=== PATIENT | male | born 1965 | race Caucasian/White ===

== ENCOUNTER 2024-07-08 03:48 | Observation (INO) ==
[2024-07-08] MEDS ORDERED: CARAFATE PO STA (04:04)
--- NOTE | 2024-07-08 04:06 | ED.PDOC ---
General ED Provider: Dr. ITALIA GARCIA MD Chief Complaint: Abdominal Pain Stated Complaint: Patient is a 58-year-old male that reported to the emergency department with epigastric pain. Patient stated that the pain started approximately 30 minutes prior to coming to the emergency department. Patient stated that he was asleep when the pain started. Patient's is not stated that he had to have a bowel movement yesterday evening before going to bed and it was normal. Patient stated that he has had no hematochezia, hemoptysis or melanic stools. Patient stated that he is scheduled for a colonoscopy July 31, 2024. Patient stated that he was seen for similar symptoms back in January. Looking back at his records it appears patient had a CT of the abdomen and pelvis which showed no acute findings. Since that time patient has been noncompliant with going to see his primary care physician. Patient reported a past medical history of GERD, hypertension, and vitamin D deficiency. Patient stated that he has not taken anything for his abdominal pain. Patient states that moving makes his pain worse. Patient rates his pain as an 8 out of 10 currently and states that this aching and dull in nature. Patient did report nausea with vomiting prior to arrival. Patient denies any diarrhea. Patient denies any other acute symptoms at the current time. Patient's vital signs are stable. Patient's GCS is 15. Time Seen by Provider: 07/08/24 03:50 Mode of Arrival: Walk-In Information Source: Patient Exam Limitations: No limitations Primary Care Provider: LETICIA MEYERS APRN Nursing and Triage Documentation Reviewed and Agree: Yes What is Opioid Naive?: *Opioid Naive implies the patient is not already taking opioids or not chronically receiving opioids on a daily basis. *PRN dosing is not "usually" associated with tolerance. *Patients are at higher risk of over-sedation and aspiration. What is Opioid Tolerant?: *Opioid Tolerance implies less than the expected response to an opioid. *Acquired tolerance is defined by the patient taking 60mg of oral morphine daily (or equianalgesic dose of another opioid) for 1 week or more. *Often associated with chronic pain. *May take more than usual dose to achieve desired pain control. Review of Systems Review Of Systems Constitutional: Reports No symptoms Eyes: Reports No symptoms Ears, Nose, Mouth, Throat: Reports No symptoms Respiratory: Reports No symptoms Cardiac: Reports No symptoms GI: Reports Abdominal pain, Nausea and Vomiting : Reports No symptoms Musculoskeletal: Reports No symptoms Skin: Reports No symptoms Neurological: Reports No symptoms Endocrine: Reports No symptoms Hematologic/Lymphatic: Reports No symptoms All Other Systems: Reviewed and Negative [facility] Family History FATHER Cancer PATERNAL GRANDFATHER Cancer PATERNAL GRANDFATHER Cancer UNCLE Cancer Social History Smoking and tobacco status: Never smoker Alcohol intake: never Substance use type: does not use Delisa/jew: NONE Household members: other Other Household Members: does not have anywhere to go Has 3 people he lives with, does not know them Housing: house Marital status: X LEGALLY Number of children: 4 Number of grandchildren: 7 Highest education level completed: 8th grade Financial difficulty paying for basics: very hard Current occupational status: unemployed and disabled Do you think of yourself as: straight/heterosexual Current gender identity: male Seatbelt use: always Helmet use: Yes 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 Water heater temperature set < 120 degrees: Yes Working smoke detector in home: Yes Fire extinguisher in home: Yes Carbon monoxide detector in home: Yes Firearms in home: Yes Surgical History History of surgery on lower extremity Z98.890 - Other specified postprocedural states (ICD-10) Physical Exam Physical Exam Appearance: Reports Well-appearing and Well-nourished Ill-appearing: None Pain Distress: Moderate Eyes: Reports ODALYS, EOMI and Conjunctiva clear ENT: Reports Nose normal and Oropharynx normal Neck: Supple Respiratory: Reports Airway patent, Breath sounds clear, Breath sounds equal and Respirations nonlabored Cardiovascular: Reports RRR, Pulses normal, No rub and No murmur GI/: Reports Soft, No masses, Bowel sounds normal and Tender (Patient had tenderness to palpation over the epigastrium. Hernandez sign negative. Rebound tenderness negative. No guarding noted. No masses or bruising noted.) Musculoskeletal: Reports Normal strength, ROM intact and No edema Skin: Reports Warm, Dry and Normal color Neurological: Reports Sensation intact, Motor intact, Alert and Oriented Psychiatric: Reports Affect appropriate and Mood appropriate Course Course 07/08/24 04:11 07/08/24 04:11 Orders, Labs, Meds: Lab Review 07/08/24 07/08/24 04:11 05:08 WBC 9.68 RBC 5.49 Hgb 15.0 Hct 45.1 MCV 82.1 MCH 27.3 MCHC 33.3 RDW Coeff of [place] 13.2 Plt Count 242 Immature Gran % (Auto) 0.3 Neut % (Auto) 76.5 H Lymph % (Auto) 13.0 [place] % (Auto) 8.0 Eos % (Auto) 1.9 Baso % (Auto) 0.3 Neut # (Auto) 7.4 H Lymph # (Auto) 1.3 [place] # (Auto) 0.8 Eos # (Auto) 0.2 Baso # (Auto) 0.0 Immature Gran # (Auto) 0.0 Sodium 137.9 Potassium 3.79 Chloride 104.8 Carbon Dioxide 28.2 Anion Gap 8.69 BUN 8.8 L Creatinine 0.93 Estimated GFR (MDRD) 83.00 BUN/Creatinine Ratio 9.46 Glucose 136.3 H Calcium 8.56 Total Bilirubin 0.64 AST 38.1 ALT 20.2 Alkaline Phosphatase 77.9 Troponin I < 0.012 Total Protein 6.17 L Albumin 3.64 Globulin 2.53 Albumin/Globulin Ratio 1.43 Lipase 32.3 Urine Color Yellow Urine Clarity Clear Urine pH 7.5 Ur Specific [place] 1.020 Urine Protein Negative Urine Glucose (UA) Negative Urine Ketones Negative Urine Blood Negative Urine Nitrite Negative Urine Bilirubin Negative Urine Urobilinogen 0.2 Ur Leukocyte Esterase Negative Orders Category Date Time Status EKG-(ED ONLY) Stat CARDIO 07/08/24 04:01 Completed NPO REMINDER: IMAGING ONCE CARE 07/08/24 04:06 Completed IV [ED IV/MEDIPORT/POWERPORT] .ONCE EMERGENCY 07/08/24 04:02 Active CBC W/ AUTO DIFF Stat LAB 07/08/24 04:11 Completed COMPREHENSIVE METABOLIC PANEL Stat LAB 07/08/24 04:11 Completed LIPASE Stat LAB 07/08/24 04:11 Completed TROPONIN I Stat LAB 07/08/24 04:11 Completed URINALYSIS C & S IF INDICATED Stat LAB 07/08/24 05:08 Completed 0.9 % Sodium Chloride [Saline Flush] Meds 07/08/24 04:02 Active 1 syr IVF PRN PRN Iohexol [Omnipaque 350 mg/ml 100Ml] Meds 07/08/24 04:43 Discontinued 100 ml IVP ONCE ONE Morphine Sulfate [Morphine 2 mg/ml Syringe] Meds 07/08/24 04:02 Discontinued 2 mg IVP ONCE ONE Morphine Sulfate [Morphine 2 mg/ml Syringe] Meds 07/08/24 05:56 Discontinued 2 mg IVP ONCE ONE Ondansetron HCl/Pf [Zofran Sdv] Meds 07/08/24 04:09 Discontinued 4 mg IVP ONCE STA Pantoprazole Sodium [Protonix] Meds 07/08/24 04:02 Discontinued 40 mg IVP ONCE ONE Promethazine HCl [Phenergan 25 mg/ml Vial] Meds 07/08/24 05:23 Discontinued 25 mg .ROUTE .STK-MED ONE Promethazine HCl [Phenergan 25 mg/ml Vial] 25 mg Meds 07/08/24 05:18 Discontinued 0.9 % Sodium Chloride [Sodium Chloride] 50 ml IV ONCE Sodium Chloride 0.9% [Sodium Chloride] 1,000 ml Meds 07/08/24 04:02 Discontinued IV BOLUS Sucralfate Susp [Carafate] Meds 07/08/24 04:12 Discontinued 1 gm PO ONCE STA CT ABDOMEN/PELVIS W CONTRAST Stat RADS 07/08/24 04:06 Completed Medications Generic Name Dose Route Start Last Admin Trade Name Freq PRN Reason Stop Dose Admin Sodium Chloride 1 syr 07/08/24 04:02 0.9% Sodium Chloride 10 Ml Disp.Syrin IVF PRN PRN To flush IV Discontinued Medications Generic Name Dose Route Start Last Admin Trade Name Freq PRN Reason Stop Dose Admin Sodium Chloride 1,000 mls @ 1,000 mls/hr 07/08/24 04:02 07/08/24 05:44 Sodium Chloride IV 07/08/24 05:01 Infused BOLUS ONE Infusion Promethazine HCl 25 mg/ Sodium 51 mls @ 100 mls/hr 07/08/24 05:18 07/08/24 05:26 Chloride IV 07/08/24 05:48 100 mls/hr ONCE ONE Administration Iohexol 100 ml 07/08/24 04:43 07/08/24 05:13 Iohexol 350 Mg/Ml 100ml IVP 07/08/24 04:44 Not Given ONCE ONE Morphine Sulfate 2 mg 07/08/24 04:02 07/08/24 04:12 Morphine Sulfate 2 Mg/Ml Syringe IVP 07/08/24 04:03 2 mg ONCE ONE Administration Morphine Sulfate 2 mg 07/08/24 05:56 07/08/24 06:03 Morphine Sulfate 2 Mg/Ml Syringe IVP 07/08/24 05:57 2 mg ONCE ONE Administration Ondansetron HCl 4 mg 07/08/24 04:09 07/08/24 04:16 Ondansetron Hcl/Pf 4 Mg/2 Ml Sdv IVP 07/08/24 04:10 4 mg ONCE STA Administration Pantoprazole Sodium 40 mg 07/08/24 04:02 07/08/24 04:12 Pantoprazole Sodium 40 Mg Vial IVP 07/08/24 04:03 40 mg ONCE ONE Administration Sucralfate 1 gm 07/08/24 04:12 07/08/24 04:16 Sucralfate Susp 1 Gm/10 Ml Cup PO 07/08/24 04:13 1 gm ONCE STA Administration Vital Signs: Temp Pulse Resp BP Pulse Ox 07/08/24 03:49 97.2 F L 59 L 20 149/77 H 98 Discharge Plan Discharge Patient Disposition: PLACED OBSERVATION Discharge Problem: Acute epigastric pain, Hyperglycemia, Intractable nausea and vomiting, Left nephrolithiasis Cholelithiasis Qualifiers: Cholelithiasis location: gallbladder Cholecystitis presence: without cholecystitis Biliary obstruction: without biliary obstruction Qualified Code(s): K80.20 - Calculus of gallbladder without cholecystitis without obstruction Did you review [place] [employer] for ALL controlled substances?: Not Applicable ED Provider: ITALIA GARCIA Condition: Stable Physician Progress Note: Patient is a 58-year-old male that reported to the emergency department with epigastric pain. Patient stated that the pain started approximately 30 minutes prior to coming to the emergency department. Patient stated that he was asleep when the pain started. Patient's is not stated that he had to have a bowel movement yesterday evening before going to bed and it was normal. Patient stated that he has had no hematochezia, hemoptysis or melanic stools. Patient stated that he is scheduled for a colonoscopy July 31, 2024. Patient stated that he was seen for similar symptoms back in January. Looking back at his records it appears patient had a CT of the abdomen and pelvis which showed no acute findings. Since that time patient has been noncompliant with going to see his primary care physician. Patient reported a past medical history of GERD, hypertension, and vitamin D deficiency. Patient stated that he has not taken anything for his abdominal pain. Patient states that moving makes his pain worse. Patient rates his pain as an 8 out of 10 currently and states that this aching and dull in nature. Patient did report nausea with vomiting prior to arrival. Patient denies any diarrhea. Patient denies any other acute symptoms at the current time. Patient's vital signs are stable. Patient's GCS is 15. Patient denies any EtOH, tobacco, or drug use. Patient denied any recent use or history of long-term NSAID use as well. -Will order CT of the abdomen and pelvis with contrast to rule out pancreatitis versus acute cholecystitis versus appendicitis versus diverticulitis or any other acute pathology. -Patient has acute epigastric pain 8 out of 10. Will treat with IV morphine 2 mg. Will also give a dose of p.o. Carafate 10 mg. Will give IV Protonix 40 mg. -Will order baseline labs. -Atypical signs of ACS or GA are low on my differential however will order an EKG and troponin to rule out cardiac as a cause for patient's epigastric pain. -Will give the patient IV normal saline 1 L bolus for dehydration due to nausea and vomiting. Will treat patient's nausea and vomiting with IV ondansetron 4 mg. -EKG shows sinus bradycardia with a rate of 52 bpm. Left axis deviation noted. Right bundle branch block noted. No acute ST elevations noted. This was interpreted by the ER physician. -CBC shows slight increase in neutrophils within normal white blood cell count. -Patient's glucose slightly elevated 136 mg/dL otherwise CMP unremarkable. -Patient has started to vomit again. Will give the patient IV promethazine 25 mg. -Troponin is negative. -Patient is continue to have pain in the epigastrium. Will give another IV morphine 2 mg for 8 of 10 pain. -CT of the abdomen pelvis shows 1 cm left renal stone. No stone in the ureters or hydronephrosis. Cholelithiasis without acute cholecystitis. -Due to patient's continued intractable nausea and vomiting and continued pain we will attempt to transfer patient to a facility with a higher acuity of care that has a possible need for general surgery and urology. -([id number]) Spoke to hospitalist at [facility], ANABELA Sandhu, who is accepted the patient for intractable nausea and vomiting. Patient's vital signs are stable at time of admission.
[2024-07-08] MEDS: PROTONIX IVP ONE (04:12)
[2024-07-08] MEDS: MORPHINE 2 MG/ML SYRINGE IVP ONE ×2 (04:12→06:03)
[2024-07-08] MEDS: SODIUM CHLORIDE 1,000 ML IV ONE (04:13)
[2024-07-08 04:16] LABS: BASOPHILS % (AUTO) 0.3 % (0.0-3.0); EOSINOPHILS # (AUTO) 0.2 K/ul (0.0-0.7); EOSINOPHILS % (AUTO) 1.9 % (0.0-7.0); HEMATOCRIT 45.1 % (42.0-52.0); IMMATURE GRANULOCYTE % (AUTO) 0.3 % (0.0-5.0); LYMPHOCYTES # (AUTO) 1.3 K/uL (0.60-3.4); MEAN CORPUSCULAR HEMOGLOBIN 27.3 pg (27.0-31.0); MEAN CORPUSCULAR HGB CONC 33.3 (31.8-35.4); MEAN CORPUSCULAR VOLUME 82.1 fl (80.0-94.0); MONOCYTES # (AUTO) 0.8 K/uL (0.4-2.0); NEUTROPHILS # (AUTO) 7.4 K/ul (2.0-6.9); NEUTROPHILS % (AUTO) 76.5 % (42.2-75.2); PLATELET COUNT 242 10^3/uL (140-440); RDW COEFFICIENT OF VARIATION 13.2 % (11.6-14.8); RED BLOOD COUNT 5.49 10^6/ul (4.70-6.10); WHITE BLOOD COUNT 9.68 K/ul (4.2-10.2)
[2024-07-08] MEDS: ZOFRAN SDV IVP STA (04:16)
[2024-07-08] MEDS: CARAFATE PO STA (04:16)
[2024-07-08 04:30] LABS: ALANINE AMINOTRANSFERASE 20.2 U/L (0-50); ALBUMIN 3.64 g/dL (3.5-5.0); ALKALINE PHOSPHATASE 77.9 U/L (38-126); ASPARTATE AMINO TRANSFERASE 38.1 U/L (17-59); BILIRUBIN,TOTAL 0.64 mg/dL (0.2-1.3); BLOOD UREA NITROGEN 8.8 mg/dL (9-20); CALCIUM 8.56 mg/dL (8.4-10.2); CARBON DIOXIDE 28.2 mmol/L (22-30.0); CHLORIDE 104.8 mmol/L (98-107); CREATININE 0.93 mg/dL (0.60-1.10); GLUCOSE 136.3 mg/dL (74-106); LIPASE 32.3 U/L (23-300); POTASSIUM 3.79 mmol/L (3.5-5.1); SODIUM 137.9 mmol/L (134.5-145); TOTAL PROTEIN 6.17 g/dL (6.3-8.2)
[2024-07-08 04:41] LABS: TROPONIN I < 0.012 ng/ml (0.0000-0.120)
[2024-07-08] MEDS: OMNIPAQUE 350 MG/ML 100ML IVP ONE ×2 (04:50→05:13)
[2024-07-08 05:23] LABS: BILIRUBIN,URINE Negative (NEGATIVE); CLARITY,URINE Clear (CLEAR); COLOR,URINE Yellow (YELLOW); GLUCOSE, URINE (UA) Negative (NEGATIVE); KETONES,URINE Negative (NEGATIVE); LEUKOCYTE ESTERASE ,URINE Negative (NEGATIVE); NITRITE,URINE Negative (NEGATIVE); PH,URINE 7.5 (5-9); PROTEIN,URINE Negative (NEGATIVE); URINE, BLOOD Negative (NEGATIVE); UROBILINOGEN,URINE 0.2 (0.2)
[2024-07-08] MEDS: PHENERGAN 25 MG/ML VIAL 25 MG in SODIUM CHLORIDE 50 ML IV ONE (05:26)
--- NOTE | 2024-07-08 05:27 | CT ---
EXAM: CT OF THE ABDOMEN AND PELVIS WITH CONTRAST TECHNIQUE: CT of the abdomen and pelvis was performed with contrast. Multiplanar reformats were perf ormed. HISTORY: Epigastric pain and upper abdominal pain. COMPARISON: CT abdomen pelvis 01/28/2024. FINDINGS: Imaged lower thorax: Calcified granulomas at the lung bases. Dependent atelectasis in the lower lobe s. Liver: Unremarkable. Gallbladder/Bile Ducts: No biliary dilation. Cholelithiasis without acute cholecystitis. Spleen: Unremarkable. Pancreas: Unremarkable. Adrenals: Unremarkable. Kidneys/Ureters: 1 cm left renal stone. No stone in the ureters. No hydronephrosis. Bowel/mesentery/peritoneum: Small duodenal diverticulum. No bowel obstruction. Normal appendix. No a scites or free air. Retroperitoneum/vessels: No aortic aneurysm. Mild scattered atherosclerotic plaques. Pelvis: Unremarkable. Bones/body wall: Multilevel degenerative spondylosis. IMPRESSION: 1 cm left renal stone. No stone in the ureters or hydronephrosis. Cholelithiasis without acute cholecystitis. All CT scans are performed using dose optimization techniques as appropriate to the performed exam an d include at least one of the following: Automated exposure control, adjustment of the mA and/or kV according t o size, and the use of iterative reconstruction technique.
[2024-07-08] MEDS: PHENERGAN 25 MG/ML VIAL ONE (07:22)
[2024-07-08 07:33] LABS: SARS COV-2 RNA RAPID NAAT NEGATIVE (NEGATIVE)
[2024-07-08] MEDS ORDERED: ZOFRAN SDV IVP PRN (08:48)
[2024-07-08] MEDS ORDERED: MORPHINE 2 MG/ML SYRINGE IVP PRN (08:48)
[2024-07-08 09:37] VITALS: BMI 36.6
[2024-07-08] MEDS: PEPCID IVP SCH (11:55)
[2024-07-08] MEDS: PROTONIX IVP SCH (11:55)
--- NOTE | 2024-07-08 13:49 | PCM ---
Date of Service Date Seen by Provider: 07/08/24 Time Seen by Provider: 09:00 Admit Day/Time Admission Date: 07/08/24 Admission Time: 08:48 Reason for Admission Chief Complaint: INTRACTABLE NAUSEA AND VOMITING Hospital Provider Hospital Provider[place]QUE [place]OTO [place] [facility] [place] Primary Care Physician: LETICIA MEYERS APRN History of Present Illness History of Present Illness: Patient is a 58 year old male with pmhx of hyperlipidemia, hypertension, left foot drop, GERD, who presented with nausea and vomiting. Patient states that he woke up in the middle of the night with it. He does complain of some epigastric pain that is on and off. He states he had an episode of this a few months ago as well. Denies any diarrhea, states he may actually just be constipated. In the ER he had a CT scan showing cholelithiasis without cholecystitis otherwise unremarkable. No common bile duct dilation noted. Infection markers normal. However patient continued to have emesis despite multiple antiemetics. Patient admitted to [facility] for intractable nausea and vomiting. Patient states he did not eat anything fatty or unhealthy yesterday. He states that he just ate Ambriz's and had a fish sandwich and soda. But he felt fine afterwards. He is unaware of any history of gallbladder issues. Denies fever. Case Discussed With Case Discussed With: Patient's case was discussed with the ER Physicians, Dr. Esparza. [facility] Surgical History History of surgery on lower extremity Z98.890 - Other specified postprocedural states (ICD-10) Family History FATHER Cancer PATERNAL GRANDFATHER Cancer PATERNAL GRANDFATHER Cancer UNCLE Cancer Social History Smoking and tobacco status: Never smoker Alcohol intake: never Substance use type: does not use Delisa/denominational: NONE Household members: other Other Household Members: does not have anywhere to go Has 3 people he lives with, does not know them Housing: house Marital status: X LEGALLY Number of children: 4 Number of grandchildren: 7 Highest education level completed: 8th grade Financial difficulty paying for basics: very hard Current occupational status: unemployed and disabled Do you think of yourself as: straight/heterosexual Current gender identity: male Seatbelt use: always Helmet use: Yes 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 Water heater temperature set < 120 degrees: Yes Working smoke detector in home: Yes Fire extinguisher in home: Yes Carbon monoxide detector in home: Yes Firearms in home: Yes Allergies Allergies Allergy/AdvReac Type Severity Reaction Status Date / Time No Known Allergies Allergy Verified 07/08/24 03:59 Current Medications Home Medications afo brace #1 ea 10/15/22 [Rx Confirmed 07/08/24 Last Taken Unknown] lisinopril 10 mg tablet 10 mg PO QDAY 30 days #30 tabs 08/07/23 [Rx Confirmed 07/08/24 Last Taken Unknown] naproxen 500 mg tablet 500 mg PO BID PRN pain #60 tabs 09/07/23 [Rx Confirmed 07/08/24 Last Taken Unknown] tizanidine 4 mg tablet (Zanaflex) 4 mg PO QHS PRN muscle spasticity #20 tabs 09/07/23 [Rx Confirmed 07/08/24 Last Taken Unknown] rosuvastatin 20 mg tablet 20 mg PO QDAY 90 days #90 tabs 09/09/23 [Rx Confirmed 07/08/24 Last Taken Unknown] mupirocin 2 % topical ointment 1 applic topical BID #22 grams 03/09/24 [Rx Confirmed 07/08/24 Last Taken Unknown] ketoconazole 2 % topical cream 1 applic topical BID #30 grams 05/24/24 [Rx Confirmed 07/08/24 Last Taken Unknown] Home Famotidine (Famotidine Inj 20 Mg/2 Ml Vial) 20 mg IVP Q12HR [facility] Last Admin: 07/08/24 11:55 Dose: 20 mg Morphine Sulfate (Morphine Sulfate 2 Mg/Ml Syringe) 2 mg IVP Q6H PRN PRN Reason: MODERATE PAIN Ondansetron HCl (Ondansetron Hcl/Pf 4 Mg/2 Ml Sdv) 4 mg IVP Q6H PRN PRN Reason: Nausea / Vomiting Pantoprazole Sodium (Pantoprazole Sodium 40 Mg Vial) 40 mg IVP QDAC2 [facility] Last Admin: 07/08/24 11:55 Dose: 40 mg Sodium Chloride (0.9% Sodium Chloride 10 Ml Disp.Syrin) 1 syr IVF PRN PRN PRN Reason: To flush IV Discontinued Medications Sodium Chloride (Sodium Chloride) 1,000 mls @ 1,000 mls/hr IV BOLUS ONE Stop: 07/08/24 05:01 Last Infusion: 07/08/24 05:44 Dose: Infused Promethazine HCl 25 mg/ Sodium (Chloride) 51 mls @ 100 mls/hr IV ONCE ONE Stop: 07/08/24 05:48 Last Admin: 07/08/24 05:26 Dose: 100 mls/hr Iohexol (Iohexol 350 Mg/Ml 100ml) 100 ml IVP ONCE ONE Stop: 07/08/24 04:44 Last Admin: 07/08/24 05:13 Dose: Not Given Iohexol (Iohexol 350 Mg/Ml 100ml) 100 ml IVP ONCE ONE Stop: 07/08/24 08:23 Last Admin: 07/08/24 04:50 Dose: 100 ml Morphine Sulfate (Morphine Sulfate 2 Mg/Ml Syringe) 2 mg IVP ONCE ONE Stop: 07/08/24 04:03 Last Admin: 07/08/24 04:12 Dose: 2 mg Morphine Sulfate (Morphine Sulfate 2 Mg/Ml Syringe) 2 mg IVP ONCE ONE Stop: 07/08/24 05:57 Last Admin: 07/08/24 06:03 Dose: 2 mg Ondansetron HCl (Ondansetron Hcl/Pf 4 Mg/2 Ml Sdv) 4 mg IVP ONCE STA Stop: 07/08/24 04:10 Last Admin: 07/08/24 04:16 Dose: 4 mg Pantoprazole Sodium (Pantoprazole Sodium 40 Mg Vial) 40 mg IVP ONCE ONE Stop: 07/08/24 04:03 Last Admin: 07/08/24 04:12 Dose: 40 mg Sucralfate (Sucralfate Susp 1 Gm/10 Ml Cup) 1 gm PO ONCE STA Stop: 07/08/24 04:13 Last Admin: 07/08/24 04:16 Dose: 1 gm Opioid Naive vs. Tolerant Does Patient Take Opioids?: No Is Patient Opioid Naive?: Yes What is Opioid Naive?: *Opioid Naive implies the patient is not already taking opioids or not chronically receiving opioids on a daily basis. *PRN dosing is not "usually" associated with tolerance. *Patients are at higher risk of over-sedation and aspiration. Is Patient Opioid Tolerant?: No What is Opioid Tolerant?: *Opioid Tolerance implies less than the expected response to an opioid. *Acquired tolerance is defined by the patient taking 60mg of oral morphine daily (or equianalgesic dose of another opioid) for 1 week or more. *Often associated with chronic pain. *May take more than usual dose to achieve desired pain control. Review of Systems Constitutional: Denies Fever Head: Reports Normocephalic and Atraumatic Cardiovascular: Denies Chest pain or Chest Pressure Respiratory: Denies Cough or Shortness of air Gastrointestinal: Reports Nausea, Vomiting and Abdominal pain; Denies Diarrhea or Melena Genitourinary: Denies Dysuria or Hematuria Dermatologic: Denies Rashes Physical examination Most Recent Vital Signs: Most Recent Vital Signs Temperature 97 F L 07/08/24 09:02 Temperature Source Oral 07/08/24 09:02 Temperature Source Infrared 07/08/24 03:49 Pulse Rate 57 L 07/08/24 09:02 Respiratory Rate 16 07/08/24 09:02 Blood Pressure 148/86 H 07/08/24 07:54 Blood Pressure Left Arm 159/99 07/08/24 09:02 Blood Pressure Position Supine 07/08/24 09:02 O2 Sat by Pulse Oximetry 97 07/08/24 09:02 Oxygen Delivery Method Room Air 07/08/24 13:29 Height 5 ft 6 in 07/08/24 09:02 Weight 103 kg 07/08/24 09:02 Appearance: Positive No Apparent Distress, Alert and Oriented x3 and Other (Patient lies on his right side with his eyes closed during interview/exam) Skin: Negative Rashes HEENT: Positive Normocephalic and Atraumatic Neck: Positive Supple and Midline Trachea Chest/Lungs: Positive Clear to Auscultation Bilaterally; Negative Rales, Rhonci or Wheezes Heart: Positive RRR GI/: Positive Soft, Bowel Sounds Normal and Other (+Pt refuses to roll off his right side for me to evaluate his RUQ, states it will make him puke and he is not moving. ) Neurological: Positive Alert and Oriented Psychiatric: Positive Oriented x4, Appropriate Mood and Appropriate Affect Labs This Visit Labs This Visit: Labs This Visit 07/08/24 07/08/24 07/08/24 04:11 05:08 07:09 WBC 9.68 RBC 5.49 Hgb 15.0 Hct 45.1 MCV 82.1 MCH 27.3 MCHC 33.3 RDW Coeff of Meliton 13.2 Plt Count 242 Immature Gran % (Auto) 0.3 Neut % (Auto) 76.5 H Lymph % (Auto) 13.0 [place] % (Auto) 8.0 Eos % (Auto) 1.9 Baso % (Auto) 0.3 Neut # (Auto) 7.4 H Lymph # (Auto) 1.3 [place] # (Auto) 0.8 Eos # (Auto) 0.2 Baso # (Auto) 0.0 Immature Gran # (Auto) 0.0 Sodium 137.9 Potassium 3.79 Chloride 104.8 Carbon Dioxide 28.2 Anion Gap 8.69 BUN 8.8 L Creatinine 0.93 Estimated GFR (MDRD) 83.00 BUN/Creatinine Ratio 9.46 Glucose 136.3 H Calcium 8.56 Total Bilirubin 0.64 AST 38.1 ALT 20.2 Alkaline Phosphatase 77.9 Troponin I < 0.012 Total Protein 6.17 L Albumin 3.64 Globulin 2.53 Albumin/Globulin Ratio 1.43 Lipase 32.3 Urine Color Yellow Urine Clarity Clear Urine pH 7.5 Ur Specific [place] 1.020 Urine Protein Negative Urine Glucose (UA) Negative Urine Ketones Negative Urine Blood Negative Urine Nitrite Negative Urine Bilirubin Negative Urine Urobilinogen 0.2 Ur Leukocyte Esterase Negative SARS CoV-2 RNA Rapid GERSON Negative Imaging Imaging: EXAM: CT OF THE ABDOMEN AND PELVIS WITH CONTRAST TECHNIQUE: CT of the abdomen and pelvis was performed with contrast. Multiplanar reformats were performed. HISTORY: Epigastric pain and upper abdominal pain. COMPARISON: CT abdomen pelvis 01/28/2024. FINDINGS: Imaged lower thorax: Calcified granulomas at the lung bases. Dependent atelectasis in the lower lobes. Liver: Unremarkable. Gallbladder/Bile Ducts: No biliary dilation. Cholelithiasis without acute cholecystitis. Spleen: Unremarkable. Pancreas: Unremarkable. Adrenals: Unremarkable. Kidneys/Ureters: 1 cm left renal stone. No stone in the ureters. No hydronephrosis. Bowel/mesentery/peritoneum: Small duodenal diverticulum. No bowel obstruction. Normal appendix. No ascites or free air. Retroperitoneum/vessels: No aortic aneurysm. Mild scattered atherosclerotic plaques. Pelvis: Unremarkable. Bones/body wall: Multilevel degenerative spondylosis. IMPRESSION: 1 cm left renal stone. No stone in the ureters or hydronephrosis. Cholelithiasis without acute cholecystitis. EXAM: ULTRASOUND ABDOMINAL HISTORY: Acute abdominal pain. Right upper quadrant pain. TECHNIQUE: Sonography of the abdomen was performed. Images were obtained and stored in a permanent archive. Study is limited by the body habitus, patient's clinical condition and overlying bowel gas. COMPARISON: CT abdomen pelvis 07/08/2024 FINDINGS: Pancreas: Not visualized due to overlying bowel gas. Liver: Liver measures 14.5 cm. Normal echogenicity. No lesions. Main portal vein is patent and demonstrates appropriate directional flow. Biliary: No duct dilation. Not visualized. Gallbladder sludge. No surrounding inflammatory changes or associated wall thickening. Right Kidney: Not visualized due to overlying bowel gas. IVC: Not visualized.. Other: No ascites. IMPRESSION: - Limited study as above - Gallbladder sludge without associated wall thickening or surrounding soft tissue stranding. - Nonvisualization of the midline structures as above. Review Statement Review Statement: I have independently reviewed and interpreted the labs/EKGs/imaging that were ordered by the ER provider. I have reviewed all outside records that are available currently in our EMR including imaging/notes/labs from previous visits. Plan Plan: 1. Intractable n/v - zofran prn, protonix and pepcid ordered, NPO. CT showing cholelithiasis, US showing gallbladder sludge. No sign of cholecystitis or CBD dilation. May need outpatient f/u if symptoms continue. Lipase and liver enzymes normal. Progress diet this evening if symptoms improved. DVT Prophylaxis: Ambulation Time Spent: Greater than 80 minutes spent with patient, 50% of the time spent with this patient was devoted to counseling and coordination of care. [facility]annin minutes spent discussing advance care planning. Admit to: Obs Discussed Plan of Care with Dr. Pina Manuel. Medications Medication Orders: Medications Ordered Category Date Time Status 0.9 % Sodium Chloride [Saline Flush] Meds 07/08/24 04:02 Active 1 syr IVF PRN PRN Famotidine Inj [Pepcid] Meds 07/08/24 09:00 Active 20 mg IVP Q12HR Morphine Sulfate [Morphine 2 mg/ml Syringe] Meds 07/08/24 08:48 Active 2 mg IVP Q6H PRN Ondansetron HCl/Pf [Zofran Sdv] Meds 07/08/24 08:48 Active 4 mg IVP Q6H PRN Pantoprazole Sodium [Protonix] Meds 07/08/24 09:00 Active 40 mg IVP QDAC2
[2024-07-08 21:14] VITALS: RESP 18
[2024-07-09 05:14] VITALS: BP 145/92; TEMP 97.3
[2024-07-09 05:27] LABS: BASOPHILS % (AUTO) 0.2 % (0.0-3.0); EOSINOPHILS # (AUTO) 0.1 K/ul (0.0-0.7); EOSINOPHILS % (AUTO) 0.6 % (0.0-7.0); HEMATOCRIT 44.9 % (42.0-52.0); HEMOGLOBIN 15.1 g/dl (14.0-18.0); IMMATURE GRANULOCYTE % (AUTO) 0.3 % (0.0-5.0); LYMPHOCYTES # (AUTO) 1.2 K/uL (0.60-3.4); LYMPHOCYTES % (AUTO) 10.8 (10.0-50.0); MEAN CORPUSCULAR HGB CONC 33.6 (31.8-35.4); MEAN CORPUSCULAR VOLUME 83.1 fl (80.0-94.0); MONOCYTES # (AUTO) 1.1 K/uL (0.4-2.0); MONOCYTES % (AUTO) 9.5 (0-10); NEUTROPHILS % (AUTO) 78.6 % (42.2-75.2); PLATELET COUNT 237 10^3/uL (140-440); RDW COEFFICIENT OF VARIATION 13.2 % (11.6-14.8); WHITE BLOOD COUNT 11.42 K/ul (4.2-10.2)
[2024-07-09 05:31] LABS: ALANINE AMINOTRANSFERASE 16.5 U/L (0-50); ALBUMIN 3.4 g/dL (3.5-5.0); ALKALINE PHOSPHATASE 70.2 U/L (38-126); ASPARTATE AMINO TRANSFERASE 20.9 U/L (17-59); BILIRUBIN,TOTAL 1.9 mg/dL (0.2-1.3); BLOOD UREA NITROGEN 9.7 mg/dL (9-20); CALCIUM 8.66 mg/dL (8.4-10.2); CARBON DIOXIDE 24.9 mmol/L (22-30.0); CHLORIDE 103.8 mmol/L (98-107); CREATININE 0.85 mg/dL (0.60-1.10); GLUCOSE 105.6 mg/dL (74-106); POTASSIUM 3.71 mmol/L (3.5-5.1); SODIUM 135.3 mmol/L (134.5-145); TOTAL PROTEIN 5.98 g/dL (6.3-8.2)
--- NOTE | 2024-07-09 09:17 | DCSUM ---
Admission Date Admission Date: 07/08/24 Discharge Date Discharge Date: 07/09/24 Admission Diagnosis Admission Diagnosis: 1. Intractable n/v Discharge Diagnosis Discharge Diagnosis: 1. Intractable n/v - resolved Hospital Provider Hospital Provider: ROQUE ESCOTO [facility]-C, [facility] Primary Care Physician Primary Care Physician: LETICIA MEYERS APRN Summary of History and Physical Summary of History and Physical: Patient is a 58 year old male with pmhx of hyperlipidemia, hypertension, left foot drop, GERD, who presented with nausea and vomiting. Patient states that he woke up in the middle of the night with it. He does complain of some epigastric pain that is on and off. He states he had an episode of this a few months ago as well. Denies any diarrhea, states he may actually just be constipated. In the ER he had a CT scan showing cholelithiasis without cholecystitis otherwise unremarkable. No common bile duct dilation noted. Infection markers normal. However patient continued to have emesis despite multiple antiemetics. Patient admitted to [facility] for intractable nausea and vomiting. Patient states he did not eat anything fatty or unhealthy yesterday. He states that he just ate Ambriz's and had a fish sandwich and soda. But he felt fine afterwards. He is unaware of any history of gallbladder issues. Denies fever. Hospital Course Subjective: Patient had an US showing gallbladder sludge, otherwise unremarkable. Patient's pain and n/v resolved. He was able to progress diet. Discussed if symptoms continue may need to consider gallbladder as culprit and f/u outpatient. Otherwise labs and vitals stable. BP mildly high. Pt states he hasn't taken his blood pressure med or statin in 1-2 months because he "accidentally threw them away." Sent in 1 month supply of both. Discharged on zofran prn. Continue to progress diet as tolerated. Avoid fatty foods. Pt agrees to plan of care. Appearance: Pleasant, No Apparent Distress and Alert HEENT: MMM and Supple CVS: No Murmur Abdomen: Soft, Non-Tender and No Distention Respiratory: No Accessory Muscle Use Extremities: No Edema Vital Signs: Most Recent Vital Signs Temperature 97.3 F L 07/09/24 05:13 Temperature Source Temporal Artery Scan 07/09/24 05:13 Temperature Source Infrared 07/08/24 03:49 Pulse Rate 61 07/09/24 05:13 Respiratory Rate 18 07/09/24 05:13 Blood Pressure 145/92 H 07/09/24 05:13 Blood Pressure Mean 109 07/09/24 05:13 Blood Pressure Left Arm 159/99 07/08/24 09:02 Blood Pressure Location Left Arm 07/09/24 05:13 Blood Pressure Position Supine 07/09/24 05:13 O2 Sat by Pulse Oximetry 95 07/09/24 05:13 Oxygen Delivery Method Room Air 07/09/24 09:00 Height 5 ft 6 in 07/08/24 09:02 Weight 103 kg 07/08/24 09:02 Telemetry Type Remote Telemetry 07/09/24 07:00 Telemetry Monitoring Continues 07/09/24 07:00 Telemetry Heart Rate 56 L 07/09/24 07:00 EKG MT Interval 0.16 07/09/24 07:00 EKG QRS Interval 0.14 H 07/09/24 07:00 Telemetry Strip Reading SB w/ BBB 07/09/24 07:00 Imaging: EXAM: CT OF THE ABDOMEN AND PELVIS WITH CONTRAST TECHNIQUE: CT of the abdomen and pelvis was performed with contrast. Multiplanar reformats were performed. HISTORY: Epigastric pain and upper abdominal pain. COMPARISON: CT abdomen pelvis 01/28/2024. FINDINGS: Imaged lower thorax: Calcified granulomas at the lung bases. Dependent atelectasis in the lower lobes. Liver: Unremarkable. Gallbladder/Bile Ducts: No biliary dilation. Cholelithiasis without acute cholecystitis. Spleen: Unremarkable. Pancreas: Unremarkable. Adrenals: Unremarkable. Kidneys/Ureters: 1 cm left renal stone. No stone in the ureters. No hydronephrosis. Bowel/mesentery/peritoneum: Small duodenal diverticulum. No bowel obstruction. Normal appendix. No ascites or free air. Retroperitoneum/vessels: No aortic aneurysm. Mild scattered atherosclerotic plaques. Pelvis: Unremarkable. Bones/body wall: Multilevel degenerative spondylosis. IMPRESSION: 1 cm left renal stone. No stone in the ureters or hydronephrosis. Cholelithiasis without acute cholecystitis. EXAM: ULTRASOUND ABDOMINAL HISTORY: Acute abdominal pain. Right upper quadrant pain. TECHNIQUE: Sonography of the abdomen was performed. Images were obtained and stored in a permanent archive. Study is limited by the body habitus, patient's clinical condition and overlying bowel gas. COMPARISON: CT abdomen pelvis 07/08/2024 FINDINGS: Pancreas: Not visualized due to overlying bowel gas. Liver: Liver measures 14.5 cm. Normal echogenicity. No lesions. Main portal vein is patent and demonstrates appropriate directional flow. Biliary: No duct dilation. Not visualized. Gallbladder sludge. No surrounding inflammatory changes or associated wall thickening. Right Kidney: Not visualized due to overlying bowel gas. IVC: Not visualized.. Other: No ascites. IMPRESSION: - Limited study as above - Gallbladder sludge without associated wall thickening or surrounding soft tissue stranding. - Nonvisualization of the midline structures as above. Lab Results Last 24 Hours: 07/09/24 05:07 WBC 11.42 H RBC 5.40 Hgb 15.1 Hct 44.9 MCV 83.1 MCH 28.0 MCHC 33.6 RDW Coeff of [place] 13.2 Plt Count 237 Immature Gran % (Auto) 0.3 Neut % (Auto) 78.6 H Lymph % (Auto) 10.8 [place] % (Auto) 9.5 Eos % (Auto) 0.6 Baso % (Auto) 0.2 Neut # (Auto) 9.0 H Lymph # (Auto) 1.2 [place] # (Auto) 1.1 Eos # (Auto) 0.1 Baso # (Auto) 0.0 Immature Gran # (Auto) 0.0 Sodium 135.3 Potassium 3.71 Chloride 103.8 Carbon Dioxide 24.9 Anion Gap 10.31 BUN 9.7 Creatinine 0.85 Estimated GFR (MDRD) 93.00 BUN/Creatinine Ratio 11.41 Glucose 105.6 Calcium 8.66 Total Bilirubin 1.90 H AST 20.9 ALT 16.5 Alkaline Phosphatase 70.2 Total Protein 5.98 L Albumin 3.40 L Globulin 2.58 Albumin/Globulin Ratio 1.31 Discharge Instructions Discharge Planning: Discharge Planning > [address] Pina Manuel. Discharge Medications: Medications at Discharge (Home Meds & RX) Discharge Plan Discharge Discharge Orders: Discharge Patient (ONCE); Ordered 07/09/24 Ordered By: ROQUE ESCOTO Activity Restrictions/Additional Instructions: DISCHARGE TO HOME DX: INTRACTABLE NAUSEA AND VOMITING PHARMACY: [facility] NEEDED FOR NAUSEA FOLLOW UP WITH PCP THIS COMING WEEK Instructions: Epigastric Pain (ED) Patient Disposition: HOME SELF-CARE Prescriptions: New ondansetron 4 mg tablet,disintegrating 4 mg PO Q8H PRN (Reason: nausea and vomiting) Qty: 14 0RF Continued lisinopril 10 mg tablet 10 mg PO QDAY 30 Days Qty: 30 0RF rosuvastatin 20 mg tablet 20 mg PO QDAY 90 Days Qty: 30 0RF Discontinued naproxen 500 mg tablet 500 mg PO BID PRN (Reason: pain) Qty: 60 0RF tizanidine [Zanaflex] 4 mg tablet 4 mg PO QHS PRN (Reason: muscle spasticity) Qty: 20 0RF mupirocin 2 % ointment 1 applic topical BID Qty: 22 0RF ketoconazole 2 % cream 1 applic topical BID Qty: 30 0RF No Action (DME) afo brace See Rx Instructions .ROUTE .MEDSUPPLY Qty: 1 0RF Rx Instructions: As directed Did you review [place] [employer] for ALL controlled substances?: Not Applicable Discussed opioids are addictive and Narcan is available by prescription or from pharmacy.: No Condition: Stable Referrals: LETICIA MEYERS APRN [Primary Care Provider] - 07/15/24 11:00 am
[2024-07-09 09:32] VITALS: PULSE 56
== END 2024-07-09 10:05 | disposition home or self-care (01) ==
LOC: ED 03:48 → MEDSURG B 03:48
PROVIDERS: ADMIT Hospitalist; ATTEND Physician Assistant
DX: R73.9 Hyperglycemia, unspecified; R10.13 Epigastric pain; Z20.822 Contact with and (suspected) exposure to COVID-19; R11.2 Nausea with vomiting, unspecified; N20.0 Calculus of kidney; I10 Essential (primary) hypertension; E78.5 Hyperlipidemia, unspecified; E86.0 Dehydration; K80.20 Calculus of gallbladder without cholecystitis without obstruction